=== PATIENT | male | born 1995 | race Caucasian/White ===

== ENCOUNTER 2018-02-05 22:12 | Emergency (ER) | payer OTHER ==
[~2018-02-05] VITALS: Ht 193 cm; Wt 133.8 kg
[2018-02-05] MEDS ORDERED: IBUP400 PO (23:36)
[2018-02-05] MEDS ORDERED: Crutch1 EACH XX (23:36)
== END 2018-02-05 23:57 | disposition home or self-care (01) ==
LOC: ER 22:12
DX: S80.01XA Contusion of right knee, initial encounter (principal); W01.198A Fall on same level from slipping, tripping and stumbling with subsequent striking against other object, initial encounter; Z87.891 Personal history of nicotine dependence
CPT/HCPCS: 29505; 73564; 99283